=== PATIENT | male | born 1990 ===

== ENCOUNTER 2017-06-18 21:39 | Emergency (ER) | payer OTHER ==
[2017-06-18 21:51] VITALS: BP 127/62
--- NOTE | 2017-06-18 21:52 | EDPHY ---
H & P Time Seen by Provider: 06/18/17 21:41 HPI/ROS: CHIEF COMPLAINT: Right 5th finger injury HISTORY OF PRESENT ILLNESS: Patient was playing flag football and ran into another player about 45 min prior to arrival. He states he caught his right 5th finger on the other player bending it backwards. He thinks it may be dislocated. He denies other injuries. He has sensation in the finger but cannot move it. REVIEW OF SYSTEMS: Negative except per HPI. General Appearance: Alert, no distress. Eyes: Pupils equal and round no icterus Respiratory: No respiratory distress Neurological: Awake, alert, no focal deficits. Skin: Warm and dry, no rashes. Musculoskeletal: Neck is supple nontender. Right hand with deformity at the MCP joint of the 5th digit with lateral displacement. Distal intact. No other abnormalities to the right hand noted. No snuffbox tenderness. Extremities otherwise are symmetrical, full range of motion, no edema. Psychiatric: Patient is oriented X 3, there is no agitation. Constitutional: Initial Vital Signs Temperature (C) 36.6 C 06/18/17 21:49 Heart Rate 72 06/18/17 21:49 Respiratory Rate 18 06/18/17 21:49 Blood Pressure 127/62 H 06/18/17 21:49 O2 Sat (%) 97 06/18/17 21:49 O2 Delivery Mode Room Air Allergies/Adverse Reactions: No Known Allergies Allergy (Unverified 02/02/13 00:21) Medical Decision Making - Diagnostics Imaging Results: Dislocation of the right 5th proximal interphalangeal joint noted. No obvious fracture. Imaging: I viewed and interpreted images myself ED Course/Re-evaluation: Digital block performed for analgesia. Sterile technique used, bupivacaine 0.25% without epi used. No blood aspirated prior to infiltration. Four mils total. Reduction of the proximal interphalangeal joint performed. Anesthesia as documented above. Gentle in-line traction applied and distinct"pop"felt as joint reduced. Normal range of motion subsequent to reduction. Distal circulation intact. Aluminum splint applied under my direct supervision. Distal circulation intact prior to and after splint application. Differential Diagnosis: Differential diagnosis includes but is not limited to fracture, dislocation, other hand or wrist injury. After evaluation found to have dislocation of the right 5th proximal interphalangeal joint without fracture. This was reduced as documented above. Placed in splint and referred to hand surgeon and/or primary care for follow-up. Stable for discharge. Departure - Departure Disposition: Home, Routine, Self-Care Clinical Impression: Dislocation, finger, interphalangeal joint Qualifiers: Encounter type: initial encounter Qualified Code(s): S63.279A - Dislocation of unspecified interphalangeal joint of unspecified finger, initial encounter Condition: Good Instructions: Finger Dislocation (ED) Additional Instructions: Wear splint until follow-up with primary care or hand surgeon. Ice frequently. Ibuprofen and Tylenol for pain. Keep elevated to help reduce swelling. Referrals: Vinnie Vincent DO [Doctor of Osteopathy] - As per Instructions Juliann Ha MD [Medical Doctor] - As per Instructions
== END 2017-06-18 22:24 | disposition home or self-care (01) ==
LOC: CED 21:39
PROC: 0RSWXZZ Reposition Right Finger Phalangeal Joint, External Approach (ICD-10-PCS; principal; 2017-06-18)
DX: S63.276A Dislocation of unspecified interphalangeal joint of right little finger, initial encounter (principal); W51.XXXA Accidental striking against or bumped into by another person, initial encounter; Y99.8 Other external cause status; Y93.61 Activity, american tackle football
CPT/HCPCS: 73140-PO; L3925